=== PATIENT | female | born 1935 | race Caucasian/White ===

== ENCOUNTER → 2017-04-21 | Outpatient (CLI) | payer OTHER ==
[~2017-04-21] MED LIST: SIMVASTATIN40 MG PO
== END ==
LOC: M.RAD 12:41
DX: Z12.31 Encounter for screening mammogram for malignant neoplasm of breast (principal)

== ENCOUNTER 2018-06-02 21:19 | Inpatient (IN) | payer OTHER ==
[~2018-06-02] VITALS: Ht 165.1 cm; Wt 67.1 kg
[2018-06-02 21:21] VITALS: BP 155/65
[2018-06-02] MEDS ORDERED: ASPIR 8181 M1 PO (21:28)
[2018-06-02] MEDS ORDERED: PRILOSEC 20 MG20 MG PO (21:28)
[2018-06-02 21:53] LABS: ABSOLUTE BASOPHILS 0.1 thou/uL (0.0-0.2); ABSOLUTE EOSINOPHILS 0.1 thou/uL (0.0-0.7); ABSOLUTE LYMPHOCYTES 3.1 thou/uL (0.8-5.3); ABSOLUTE MONOCYTES 0.7 thou/uL (0.0-1.2); ABSOLUTE NEUTROPHILS 5.6 thou/uL (1.6-8.1); BASOPHILS 0.5 %; EOSINOPHILS 1.3 %; HEMATOCRIT 41.4 % (37.0-47.0); HEMOGLOBIN 13.8 gm/dL (12.0-15.0); LYMPHOCYTES 32.5 %; MCH 28.3 pg (26.0-34.0); MCHC 33.4 g/dL (28.0-37.0); MCV 84.8 fL (80.0-100.0); MONOCYTES 7.7 %; MPV 9.4 fl. (7.2-11.1); NUCLEATED RBCS 0 /100WBC; PLATELET COUNT* 226 thou/uL (150-400); RBC 4.88 mil/uL (4.20-5.00); RDW-CV 14.4 % (10.5-14.5); WBC 9.7 thou/uL (4.0-11.0)
[2018-06-02 22:04] LABS: PROTIME 10.4 Seconds (9.20-11.50)
[2018-06-02 22:10] LABS: ANION GAP 8 mmol/L (7-16); BUN 20 mg/dL (7-18); CALCIUM 8.7 mg/dL (8.5-10.1); CHLORIDE 104 mmol/L (98-107); CO2 30 mmol/L (21-32); CREATININE 1.2 mg/dL (0.6-1.3); GLUCOSE 129 mg/dL (70-99); POTASSIUM 3.3 mmol/L (3.5-5.1); SODIUM 142 mmol/L (136-145); TROPONIN-I LEVEL <0.06 ng/mL (<0.06)
[2018-06-02 22:14] LABS: ALBUMIN 3.6 g/dL (3.4-5.0); ALKALINE PHOSPHATASE 165 U/L (46-116); LIPASE 196 U/L (73-393); NT-PRO BRAIN NAT PEPTIDE 460 pg/mL (<300); SGOT 21 U/L (15-37); SGPT 20 U/L (30-65); TOTAL BILIRUBIN 0.4 mg/dL (<0.1-1.0); TOTAL PROTEIN 7.8 g/dL (6.4-8.2)
[2018-06-02 22:49] LABS: URINE BILIRUBIN NEGATIVE (Negative); URINE BLOOD NEGATIVE (Negative); URINE CLARITY CLEAR; URINE COLOR YELLOW; URINE GLUCOSE-RANDOM NEGATIVE (Negative); URINE KETONES NEGATIVE (Negative); URINE LEUKOCYTES-REFLEX NEGATIVE (Negative); URINE NITRITE-REFLEX NEGATIVE (Negative); URINE PROTEIN NEGATIVE (Negative); URINE SPECIFIC GRAVITY <= 1.005 (1.005-1.030); URINE UROBILINOGEN 0.2 E.U./dl (0.2-1.0)
[2018-06-03 00:16] VITALS: BP 147/75
[2018-06-03 00:30] VITALS: BP 93/76
[2018-06-03 04:00] VITALS: BP 122/61
--- NOTE | 2018-06-03 05:33 | NUR ---
PT RECIEVED FROM ED AT 0030. SAT MAINTAINED IN 2L NC. ALERT AND ORIENTED X4. CALL LIGHT WITHIN REACH AND BED IN LOW POSITION. DENIES PAIN AND SOB. HOURLY ROUNDING DONE FOR PT SAFETY.
[2018-06-03 08:00] VITALS: BP 119/70
--- NOTE | 2018-06-03 10:45 | EKG ---
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
--- NOTE | 2018-06-03 12:20 | EXE ---
[place] [address] STRESS ECHOCARDIOGRAM Name: CRISTINA REYNOLDS Julia Room: [address] IN [facility]#: [id number] Admission: 06/02/18 Attend Phys: Cordell Freitas, Discharge: Date of : 39 Date of Service: 06/03/18 1220 Report #: [id number] THIS REPORT FOR: //name// APPROVED REPORT Study performed: 06/03/2018 10:16:13 Exam: Stress Echocardiogram Indication: Dyspnea , Chest pain Patient Location: In-Patient Stress Nurse: Nani Wheeler RN Room #: [facility] Supervising Physician: Ace Mitchell MD Status: routine Ht: 5 ft 5 in HR: 72 bpm BP: 173/85 mmHg Rhythm: NSR Medical History Medications: ASA, Simvastatin Allergies: No known drug allergies Cardiac Risk Factors: Hyperlipidemia Procedure The patient underwent an Exercise Stress Test using the Ryan Protocol. Blood pressure, heart rate, and EKG were monitored. An Echocardiogram was performed by signal technician in four stages in quad fashion. At peak stress, four selected images were obtained and placed side by side with resting images for comparison. Stress Test Details Stress Test: Exercise stress testing was performed using a Ryan protocol. HR Resting HR: 73 bpm Max Heart Rate (APMHR): 140 bpm Max HR Achieved: 130 bpm Target HR (85% APMHR): 119 bpm % of APMHR: 92 Recovery HR: 92 bpm HR response to stress: Normal HR response to stress BP Resting BP: 173/85 mmHg Max BP: 195/69 mmHg Recovery BP: 172/79 [place] [address] STRESS ECHOCARDIOGRAM Name: CRISTINA REYNOLDS Room: [address]#: [id number] Admission: 06/02/18 Attend Phys: Cordell Freitas, Discharge: Date of : 39 Date of Service: 06/03/18 1220 Report #: [id number] BP response to stress: Normal blood pressure response to stress. ECG Resting ECG: Sinus Rhythm Stress ECG: Sinus Rhythm, nonspecific ST-T abnormalities ST Change: Horizontal ST depression Maximum ST Deviation: 0.5 mm Arrhythmia: None Recovery ECG: Sinus Rhythm, nonspecific ST-T abnormalities Recovery ST Change: Upsloping ST depression Recovery ST Deviation: 0.5 mm Recovery Arrhythmia: APC Clinical Reason for Termination: fatigue Exercise duration: 6 min sec Highest Stage Achieved: Stage 2: 2.5 mph at 12% grade. Exercise capacity: 7.05 METs Pre-Stress Echo The resting Echocardiogram showed normal left ventricular contractility with an estimated Ejection Fraction of about 60-65%. Post-Stress Echo The stress Echocardiogram showed normal left ventricular contractility with an estimated Ejection Fraction of about >70%. Conclusion Clinical Response: Non-ischemic Exercise Capacity: Average Stress ECG Response: Indeterminant Stress Echo Images: Non-ischemic low risk stress echo for future cardiac events Other Information Study Quality: Good <Conclusion> low risk stress echo for future cardiac events <ELECTRONICALLY SIGNED> By: Ace Mitchell MD, FACC 06/03/18 1220 1220 1220 Ace Mitchell MD, FACC /INF
[2018-06-03 12:35] VITALS: BP 137/56
--- NOTE | 2018-06-03 14:28 | EKG ---
[place] [address] ELECTROCARDIOGRAM REPORT Name: CRISTINA REYNOLDS Room: [address] ADM IN M.R.#: [id number] Admission: 06/02/18 Attend Phys: Cordell Freitas MD Discharge: Date of : 39 Report #: [id number] THIS REPORT FOR: //name// [facility] Test Date: 2018-06-03 Test Time: 11:30:55 Pat Name: CRISTINA REYNOLDS Department: Room: [address] Gender: F Traffic Rate Clerk: : 1935 Requested By: Bridger Lua Order Number: [id number] Reading MD: Ace Mitchell Measurements Intervals [place] Rate: 68 P: 69 HI: 136 QRS: 40 QRSD: 91 T: 33 QT: 379 QTc: 404 Interpretive Statements Sinus rhythm Compared to ECG 06/02/2018 21:22:35 frequent pac's no longer present Electronically Signed On 06-03-2018 14:28:27 CDT by Ace Mitchell [email or web address] <ELECTRONICALLY SIGNED> By: Ace Mitchell MD, [facility] 06/03/18 1428 1130 113 Ace Mitchell MD, FAC /EPI
--- NOTE | 2018-06-03 15:07 | NUR ---
Pt out of room when CM went to assess, possible dc if stress test is negative
[2018-06-03 16:19] VITALS: BP 137/56
--- NOTE | 2018-06-03 16:47 | NUR ---
VSS, ASSUMED CARE IN THE AM, ASSESSMENT PERFORMED AND CHARTED, FALL PRECAUTIONS IN PLACE AND CALL LIGHT IN REACH, PT IS A&O4 AND UP AD TABATHA, PT IS TO COMPLETE STREES ECHO, PT GOAL IS TO D/C, AT THIS TIME HER ECHO WAS NEG, PT WAS GIVEN D/C ORDERS, IV AND TELE MONITOR, SHE DENIES ANY QUESTIONS AT TIME OF D/C HOURLY ROUNDS COMPLETED.
--- NOTE | 2018-06-06 12:40 | CON ---
[address] [address] CONSULTATION Name: LANCEKAITLINCRISTINA Julia Room: [address] IN M.R.#: [id number] Admission: 06/02/18 Attend Phys: Cordell Freitas MD Discharge: 06/03/18 Date of : 39 Report #: [id number] THIS REPORT FOR: //name// CC: Cordell Hoffman [facility] DATE OF SERVICE: 06/03/2018 HISTORY OF PRESENT ILLNESS: The patient is an 82-year-old white female who I was asked to see in the hospital today after she complained of chest pain. The patient states that since her father had a previous stroke, she saw Dr. Calderon in the past in the [facility]iology [facility] at . She saw Dr. Calderon for several years, but he told that there was nothing wrong with her heart. She apparently had a stress test in the past. She stays fairly active. However, she notes that recently when she was lying in bed, she felt a discomfort in her chest. This resolved. However, last night, she was lying in bed when she again felt an ache in her chest. Her took her pulse and felt it was irregular. He drove her to the Emergency Room and she was admitted. The ache in her chest lasted about an hour and then resolved. She denied any diaphoresis or nausea. She knows she is short of breath with exertion. She has had no edema, fever or cough. She denied any trauma to her chest. She denied the pain being related to food. She has had no blood in her stool. Denied any belch with the episode. PAST MEDICAL HISTORY: She has had tonsillectomy, appendectomy. She had breast surgery in the past that was nonmalignant. She has a history of hyperlipidemia. She is on a statin drug. She takes Prilosec. No history of hypertension or diabetes. ALLERGIES: She has no known drug allergies. FAMILY HISTORY: Father had a stroke. SOCIAL HISTORY: She is . She and her live here in [place]. No smoking or alcohol abuse. REVIEW OF SYSTEMS: She has sleep apnea, uses CPAP. No history of stroke, asthma, peptic ulcer disease, liver disease, kidney disease, cancer, psychiatric illness, chronic skin condition. PHYSICAL EXAMINATION: GENERAL: Revealed an elderly female lying in bed. She appeared in no distress. VITAL SIGNS: Showed a blood pressure of 140/70, pulse is 80, she is afebrile. HEENT: She was anicteric, conjunctiva pink. Mucous membranes moist. NECK: Neck veins nondistended. No carotid bruits heard. NECK: [place] [address] CONSULTATION Name: CRISTINA REYNOLDS Room: [address]#: [id number] Admission: 06/02/18 Attend Phys: Cordell Freitas MD Discharge: 06/03/18 Date of : 39 Report #: [id number] CHEST: Clear to auscultation. CARDIOVASCULAR: Regular rate and rhythm. Occasional prematurity. No significant murmur. ABDOMEN: Soft. EXTREMITIES: Had no edema. Dorsalis pedis pulse 2+ bilaterally. SKIN: Warm, dry. NEUROLOGIC: Nonfocal. LYMPH: No adenopathy. MUSCULOSKELETAL: No joint effusion. DIAGNOSTIC DATA: ECG last night showed a sinus rhythm. There were frequent PACs including supraventricular couplets. There was nonspecific ST and T-wave changes noted. On the monitor last night, she remained in sinus rhythm with occasional PACs. Her x-ray last night, she had a chest x-ray that showed normal heart size, clear lung henderson. Her lab work last night, sodium 142, potassium 3.3, creatinine 1.2, glucose 129. Liver function studies were normal. Troponin 0.06. Her white blood cell count 9.7, hemoglobin 13.8. Urinalysis negative for protein. IMPRESSION AND RECOMMENDATIONS: 1. Chest pain. Atypical for angina. Minimal risk factors. Suspect chest pain, noncardiac. However, because of her age and risk factors with abnormal ECG, I have recommended a stress echocardiogram. 2. Premature atrial contractions. I would check thyroid function studies and echocardiogram. 3. Hyperlipidemia. The patient is on a statin drug. 4. Sleep apnea. The patient uses CPAP. <ELECTRONICALLY SIGNED> By: Ace Mitchell MD, FACC 06/06/18 1240 0843 [id number] Mitchell MD, FACC /nt
== END 2018-06-03 17:14 | disposition home or self-care (01) | DRG 392 ==
LOC: M.ERS 21:19 → M.TBA-ER 23:38 → M.2W 23:38
PROVIDERS: Emergency Medicine; ADMIT Internal Medicine
DX: K21.9 Gastro-esophageal reflux disease without esophagitis (principal); I49.3 Ventricular premature depolarization; G47.30 Sleep apnea, unspecified; E78.5 Hyperlipidemia, unspecified; Z90.49 Acquired absence of other specified parts of digestive tract; Z79.82 Long term (current) use of aspirin; Z79.899 Other long term (current) drug therapy

== ENCOUNTER → 2018-06-09 | Outpatient (CLI) | payer OTHER ==
[~2018-06-09] MED LIST changes: +ASPIR 8181 M1 PO; +PRILOSEC 20 MG20 MG PO
== END ==
LOC: M.RAD 14:50
DX: Z12.31 Encounter for screening mammogram for malignant neoplasm of breast (principal)

== ENCOUNTER → 2019-12-04 | Outpatient (CLI) | payer MEDICARE | LOC: M.RAD 09:29 | PROVIDERS: ATTEND Family Medicine | DX: Z12.31 Encounter for screening mammogram for malignant neoplasm of breast (principal) ==